=== PATIENT | female | born 1950 | race American Indian/Alaskan Native ===

== ENCOUNTER 2019-05-20 08:27 | Outpatient (CLI) | payer MEDICARE, OTHER | END 2019-05-20 08:28 | disposition home or self-care (01) | LOC: LABHHL 08:27 | PROVIDERS: ATTEND Surgery | DX: N63.0 Unspecified lump in unspecified breast (principal) | CPT/HCPCS: 88305; 88341; 88342 ==

== ENCOUNTER 2019-06-02 14:06 | Outpatient (CLI) | payer MEDICARE | END 2019-06-02 14:07 | disposition home or self-care (01) | LOC: SPVIMAG 14:06 | DX: C50.411 Malignant neoplasm of upper-outer quadrant of right female breast (principal) | CPT/HCPCS: A9577; C8908 ==

== ENCOUNTER 2020-03-09 10:51 | Outpatient (CLI) | payer MEDICARE ==
--- NOTE | 2020-03-09 12:02 | Mammography Report ---
DIGITAL DIAGNOSTIC MAMMOGRAM WITH TOMOSYNTHESIS, 03/09/2020 CLINICAL INFORMATION / INDICATION: Patient has history of right breast cancer status post lumpectomy in September 2019. Patient has no current complaints. TECHNIQUE: Digital bilateral mammographic imaging was performed. COMPARISON: Prior mammograms 04/23/2019 and 08/16/2019 FINDINGS: Breast Density: The breasts are heterogeneously dense, which may obscure small masses. No dominant mass, suspicious calcifications or architectural distortion in either breast. There is new benign postlumpectomy change in the upper outer quadrant of the right breast and postsur gical change in the right axilla, and new radiation change in the right breast. A Mediport overlies t he left axilla. IMPRESSION: No mammographic evidence of malignancy. Follow up recommendation: Routine yearly BI-RADS Category 2: Benign. A "normal" or negative report should not discourage follow up or biopsy of a clinically significant f inding. A written summary of these findings will be mailed to the patient. The patient will be entered into a mammography reporting system which will generate a reminder letter for the patient's next appointmen t at the appropriate interval. According to the [employer], yearly mammograms are recommended starting at age 40 and continuing as long as a woman is in good health. Breast MRI is recommended for women with an alhaji roximately 20-25% or greater lifetime risk of breast cancer, including women with a strong family his tory of breast or ovarian cancer and women who have been treated for Hodgkin's disease. Signer Name: Kaley Galvan MD Signed: 03/09/2020 11:57 AM Workstation Name: [id number]
== END 2020-03-09 10:52 | disposition home or self-care (01) ==
LOC: SPVWC 10:51
PROVIDERS: ATTEND Surgery
DX: C50.411 Malignant neoplasm of upper-outer quadrant of right female breast (principal)
CPT/HCPCS: 77066; G0279

== ENCOUNTER 2020-09-29 13:53 | Outpatient (CLI) | payer MEDICARE ==
--- NOTE | 2020-09-29 14:34 | Mammography Report ---
DIGITAL DIAGNOSTIC MAMMOGRAM WITH CAD CONVENTIONAL, 09/29/2020 CLINICAL INFORMATION / INDICATION: Patient has history of right breast cancer status post lumpectomy in 2020. Patient has no current complaints. PERSONAL HISTORY OF MALIGNANT NEOPLASM OF BREAST TECHNIQUE: Digital right mammographic imaging was performed. This examination was interpreted with the benefit of Computer-aided Detection analysis. COMPARISON: Prior mammogram 03/09/2020 FINDINGS: Breast Density: The breasts are heterogeneously dense, which may obscure small masses. No dominant mass, suspicious calcifications or architectural distortion in the right breast. There is stable benign postsurgical and post radiation change in the right breast, and stable benign- appearing calcifications. There has been no significant change compared with the prior examination. IMPRESSION: No mammographic evidence of malignancy. Follow up recommendation: Back to schedule. BI-RADS Category 2: Benign. A "normal" or negative report should not discourage follow up or biopsy of a clinically significant f inding. A written summary of these findings will be mailed to the patient. The patient will be entered into a mammography reporting system which will generate a reminder letter for the patient's next appointmen t at the appropriate interval. According to the [employer], yearly mammograms are recommended starting at age 40 and continuing as long as a woman is in good health. Breast MRI is recommended for women with an alhaji roximately 20-25% or greater lifetime risk of breast cancer, including women with a strong family his tory of breast or ovarian cancer and women who have been treated for Hodgkin's disease. Signer Name: Kaley Galvan MD Signed: 09/29/2020 2:30 PM Workstation Name: [id number]
== END 2020-09-29 13:54 | disposition home or self-care (01) ==
LOC: SPVWC 13:53
PROVIDERS: ATTEND Surgery
DX: R92.1 Mammographic calcification found on diagnostic imaging of breast (principal); Z85.3 Personal history of malignant neoplasm of breast